=== PATIENT | female | born 1985 | race Caucasian/White ===

== ENCOUNTER 2024-05-08 23:13 | Emergency (ER) | payer MEDICAID ==
[~2024-05-08] VITALS: Ht 172.7 cm; Wt 61.0 kg
[2024-05-08 23:30] VITALS: BP 109/74; RESP 16; TEMP 98.7; O2SAT 100
[2024-05-08 23:32] VITALS: PULSE 94; O2SAT 99
[2024-05-09] MEDS ORDERED: ACETAMINOPHEN 325MG TABLET PO ONE (00:30)
[2024-05-09] MEDS ORDERED: ACETAMINOPHEN 325MG TABLET PO NR (00:45)
[2024-05-10] MEDS ORDERED: CEPH500T MT (00:28)
[2024-05-10] MEDS ORDERED: IBUP-2029 MT (00:28)
== END 2024-05-09 02:15 | disposition left against medical advice (07) ==
LOC: ER 23:45
DX: M79.10 Myalgia, unspecified site (principal)
CPT/HCPCS: 99281

== ENCOUNTER 2024-05-09 18:11 | Emergency (ER) | payer MEDICAID ==
[~2024-05-09] VITALS: Ht 165.1 cm; Wt 70.0 kg
[2024-05-09 18:13] VITALS: O2SAT 99
[2024-05-09] MEDS ORDERED: KETOROLAC 30MG/ML VIAL IM STA (21:06)
[2024-05-09 21:52] LABS: BASOPHILS % 0.5 % (0.0-2.0); EOSINOPHILS % 2.5 % (0.0-5.0); HEMOGLOBIN. 10.3 g/dL (12.0-16.0); LYMPHOCYTES % 22.6 % (20.0-50.0); MEAN CORPUSCULAR HEMOGLOBIN 28.5 pg (28.0-32.0); MEAN CORPUSCULAR HGB CONC 33.2 g/dL (31.0-37.0); MEAN CORPUSCULAR VOLUME 85.9 fL (81.0-99.0); MEAN PLATELET VOLUME 7.3 fl (7.4-10.4); MONOCYTES % 7.6 % (2.0-8.0); NEUTROPHILS % 66.8 % (40.0-76.0); PLATELET 438 x1000/uL (130-400); RED BLOOD CELL COUNT 3.61 mill/uL (4.2-5.4); RED CELL DISTRIBUTION WIDTH 13.9 % (11.6-14.6); WHITE BLOOD COUNT 9.4 x1000/uL (4.5-11.0)
[2024-05-09 22:03] LABS: CHLORIDE 101 mEq/L (98-107); POTASSIUM 4.1 mEq/L (3.5-5.1); SODIUM 136 mEq/L (136-145)
[2024-05-09 22:04] LABS: CARBON DIOXIDE 30 mEq/L (21-32)
[2024-05-09 22:05] LABS: CALCIUM 9.2 mg/dL (8.7-10.4)
[2024-05-09 22:09] LABS: CREATININE 0.7 mg/dL (0.6-1.0); GLUCOSE 90 mg/dL (70-105)
[2024-05-09 22:10] LABS: UREA NITROGEN BLOOD 8 mg/dL (9-23)
[2024-05-09 22:11] LABS: ALANINE AMINOTRANSFERASE 16 IU/L (10-49); ALBUMIN 4.2 g/dL (3.2-4.8); ASPARTATE AMINOTRANSFERASE 15 IU/L (<34)
[2024-05-09 22:12] LABS: BILIRUBIN TOTAL 0.5 mg/dL (0.1-1.0); PROTEIN TOTAL 7.2 g/dL (6.0-8.3)
[2024-05-09 22:20] LABS: CLARITY URINE CLEAR (CLEAR); COLOR URINE YELLOW (YELLOW); GLUCOSE URINE NEGATIVE (NEGATIVE); KETONES URINE NEGATIVE (NEGATIVE); LEUKOCYTE ESTERASE URINE 2+ (NEGATIVE); NITRITE URINE NEGATIVE (NEGATIVE); OCCULT BLOOD URINE TRACE (NEGATIVE); PROTEIN URINE NEGATIVE (NEGATIVE); SPECIFIC GRAVITY URINE 1.017 (1.005-1.030); UROBILINOGEN URINE 0.2 E.U./dL (0.2-1.0)
[2024-05-09 22:46] LABS: BACTERIA URINE 1+; RBC URINE 0-2 /hpf (0-2); SQUAMOUS EPITHELIAL CELL URINE 1+ /lpf (RARE/1+); TRICHOMONAS URINE 1+
[2024-05-09] MEDS: CEPHALEXIN 250MG CAPSULE PO ONE (22:50)
[2024-05-09] MEDS: KETOROLAC 30MG/ML VIAL IM NR (22:50)
[2024-05-10] MEDS: SODIUM CHLORIDE 0.9% 1,000 ML IV ONE (00:05)
[2024-05-10] MEDS ORDERED: CEPH500T MT (00:28)
[2024-05-10] MEDS ORDERED: IBUP-2029 MT (00:28)
[2024-05-10] MEDS: CEFTRIAXONE 1GM/50ML 50 ML IV ONE (00:45)
[2024-05-10 01:00] VITALS: BP 133/71; PULSE 84; RESP 16; TEMP 36.94740; O2SAT 100
== END 2024-05-10 01:15 | disposition left against medical advice (07) ==
LOC: ER 18:11
DX: N39.0 Urinary tract infection, site not specified (principal); R94.8 Abnormal results of function studies of other organs and systems
CPT/HCPCS: 80053; 81003; 81025; 85025; 36415; 74176; 96372; 99285; 96361; 96365; J1885; J0696; J7030; Z7610

== ENCOUNTER 2024-05-10 22:53 | Emergency (ER) | payer MEDICAID ==
[~2024-05-10] VITALS: Ht 172.7 cm; Wt 59.0 kg
[~2024-05-10 22:53] MED LIST: CEPH500T MT; IBUP-2029 MT
[2024-05-10 22:59] VITALS: O2SAT 100
[2024-05-10 23:12] VITALS: TEMP 98.7; O2SAT 99
[2024-05-11 00:27] LABS: CLARITY URINE CLEAR (CLEAR); COLOR URINE YELLOW (YELLOW); GLUCOSE URINE NEGATIVE (NEGATIVE); KETONES URINE NEGATIVE (NEGATIVE); LEUKOCYTE ESTERASE URINE 1+ (NEGATIVE); NITRITE URINE NEGATIVE (NEGATIVE); OCCULT BLOOD URINE 2+ (NEGATIVE); PH URINE 5.5 (4.5-8.0); PROTEIN URINE NEGATIVE (NEGATIVE); UROBILINOGEN URINE 0.2 E.U./dL (0.2-1.0)
[2024-05-11 00:57] LABS: BACTERIA URINE 1+; SQUAMOUS EPITHELIAL CELL URINE 1+ /lpf (RARE/1+); TRICHOMONAS URINE 1+
[2024-05-11] MEDS ORDERED: KETOROLAC 30MG/ML VIAL IV STA (01:18)
[2024-05-11] MEDS ORDERED: DOCUSATE SODIUM 100MG CAPSULE PO ONE (01:30)
[2024-05-11 01:43] LABS: BASOPHILS % 0.4 % (0.0-2.0); EOSINOPHILS % 2.6 % (0.0-5.0); HEMATOCRIT. 29.1 % (36.0-48.0); HEMOGLOBIN. 9.7 g/dL (12.0-16.0); LYMPHOCYTES % 25.9 % (20.0-50.0); MEAN CORPUSCULAR HEMOGLOBIN 28.7 pg (28.0-32.0); MEAN CORPUSCULAR HGB CONC 33.4 g/dL (31.0-37.0); MEAN CORPUSCULAR VOLUME 85.8 fL (81.0-99.0); MEAN PLATELET VOLUME 7.1 fl (7.4-10.4); MONOCYTES % 9.6 % (2.0-8.0); NEUTROPHILS % 61.5 % (40.0-76.0); PLATELET 417 x1000/uL (130-400); RED BLOOD CELL COUNT 3.39 mill/uL (4.2-5.4); WHITE BLOOD COUNT 8.2 x1000/uL (4.5-11.0)
[2024-05-11 01:54] LABS: CHLORIDE 103 mEq/L (98-107); POTASSIUM 4.2 mEq/L (3.5-5.1); SODIUM 139 mEq/L (136-145)
[2024-05-11 01:55] LABS: CARBON DIOXIDE 31 mEq/L (21-32)
[2024-05-11 01:56] LABS: CALCIUM 9.3 mg/dL (8.7-10.4)
[2024-05-11 02:00] LABS: CREATININE 0.6 mg/dL (0.6-1.0); GLUCOSE 109 mg/dL (70-105); UREA NITROGEN BLOOD 7 mg/dL (9-23)
[2024-05-11 02:02] LABS: ALANINE AMINOTRANSFERASE 18 IU/L (10-49); ASPARTATE AMINOTRANSFERASE 20 IU/L (<34)
[2024-05-11 02:03] LABS: BILIRUBIN TOTAL 0.3 mg/dL (0.1-1.0); PROTEIN TOTAL 6.6 g/dL (6.0-8.3)
[2024-05-11] MEDS ORDERED: CEPHALEXIN 250MG CAPSULE PO ONE (02:30)
[2024-05-11] MEDS: POLYETHYLENE GLYCOL 3350 (17GM) 1 DOSE PACK PO ONE (03:07)
[2024-05-11] MEDS: DOCUSATE SODIUM 100MG CAPSULE PO NR (03:07)
[2024-05-11] MEDS: CEPHALEXIN 250MG CAPSULE PO NR (03:16)
[2024-05-11 03:19] VITALS: BP 103/56; PULSE 81; RESP 16
[2024-05-11] MEDS: KETOROLAC 30MG/ML VIAL IV NR (03:19)
== END 2024-05-11 07:21 | disposition left against medical advice (07) ==
LOC: ER 23:14 → EDBEDREQ 05-11 03:31 → EDBEDREQTM 05-11 03:31 → ER 05-11 07:21
DX: K59.00 Constipation, unspecified (principal); R10.9 Unspecified abdominal pain; Z87.442 Personal history of urinary calculi
CPT/HCPCS: 99285; 80053; 81003; 83690; 85025; 36415; 76705; 96374; Z7610; J1885